=== PATIENT | female | born 1950 | race Caucasian/White ===

== ENCOUNTER → 2016-09-04 | Outpatient (CLI) | payer MEDICARE ==
--- NOTE | 2016-09-04 12:00 | RADIOLOGY REPORT PS360 ---
US [id number] HISTORY: DYSURIA,FLANK PAIN, ORDERING PHYSICIAN: Clare Garcia APRN PATIENT AGE: 66 years COMPARISON: None FINDINGS: RIGHT KIDNEY:Unremarkable. Normal size and echogenicity. No hydronephrosis. 9 x 3 x 6 cm LEFT KIDNEY:Unremarkable. No hydronephrosis. Normal size and echogenicity. 10 x 4 x 5 cm OTHER FINDINGS: Incidental note made of cholelithiasis IMPRESSION: 1. Negative bilateral renal ultrasound. 2. Cholelithiasis
--- NOTE | 2016-09-04 13:49 | RADIOLOGY REPORT PS360 ---
BONE DENSITOMETRY(HIP:LT SPINE HISTORY: OSTEOPENIA ORDERING PHYSICIAN: Clare Garcia APRN PATIENT AGE: 66 years COMPARISON: None FINDINGS: The BMD measured at the left femoral neck is 0.714 g/cm squared with a T score of -2.3. This is considered Osteopenic according to the World Health Organization criteria. Fracture risk is Moderate. Treatment is advised. IMPRESSION: Osteopenia. Recommend follow-up exam August 2018
== END ==
LOC: RAD 09:53
DX: M85.852 Other specified disorders of bone density and structure, left thigh (principal); R30.0 Dysuria; R10.9 Unspecified abdominal pain